=== PATIENT | male | born 1965 | race Caucasian/White ===

== ENCOUNTER 2019-01-17 23:25 | Emergency (ER) | payer OTHER ==
[2019-01-17 23:37] VITALS: RESP 18
[2019-01-18] MEDS ORDERED: ONDANSETRON 4 MG/2 ML VIAL IVP STA (00:24)
[2019-01-18] MEDS ORDERED: SODIUM CHLORIDE 0.9% 1,000 ML IV STA (00:24)
[2019-01-18] MEDS ORDERED: MORPHINE SULFATE 4 MG/ML SYRINGE IV STA (00:24)
[2019-01-18] MEDS ORDERED: KETOROLAC 30 MG/ML 1 ML VIAL IVP STA (00:24)
--- NOTE | 2019-01-18 00:34 | ED ---
Abdominal Pain HPI - General Chief Complaint: Abdominal Pain Stated Complaint: Groin Pain Time Seen by Provider: 01/18/19 00:08 Source: patient Mode of arrival: ambulatory Limitations: no limitations - History of Present Illness Initial Comments: 53-year-old male patient with past medical history significant for chronic low back pain, presents to the emergency department today for evaluation of right lower quadrant abdominal pain that radiates into the back. Patient states this started this afternoon and has been steadily worsening. Patient states the pain started suddenly. Patient states the pain is similar to when he has had kidney stones in the past. Patient denies any fever, chills, hematuria, dysuria, urinary frequency, urinary urgency. States he has been nauseated but has not vomited. Denies any constipation or diarrhea. Patient denies any recent rash, shortness breath, chest pain, numbness, tingling, dizziness, weakness, headache, visual changes, or any other complaints. - Related Data Previous Rx's Medication Instructions Recorded Hydrochlorothiazide 12.5 mg PO DAILY #30 capsule 11/29/15 Clindamycin HCl 300 mg PO QID #40 cap 01/06/16 Ibuprofen [Motrin] 800 mg PO Q8HR PRN #30 tab 01/06/16 traMADol HCl [Ultram] 50 mg PO Q6H PRN #20 tab 01/06/16 Ciprofloxacin HCl [Cipro] 500 mg PO BID 7 Days #14 tab 01/18/19 Ketorolac [Toradol] 10 mg PO Q6HR #12 tab 01/18/19 Ondansetron [Zofran ODT] 4 mg PO Q8HR PRN #10 tab 01/18/19 Tamsulosin HCl [Flomax] 0.4 mg PO DAILY #7 cap 01/18/19 Allergies Allergy/AdvReac Type Severity Reaction Status Date / Time No Known Allergies Allergy Verified 01/17/19 23:37 Review of Systems ROS Statement: Those systems with pertinent positive or pertinent negative responses have been documented in the HPI. ROS Other: All systems not noted in ROS Statement are negative. Past Medical History Past Medical History: Hypertension Additional Past Medical History / Comment(s): herniated disc, kidney stones History of Any Multi-Drug Resistant Organisms: None Reported Past Surgical History: Hernia Repair Past Psychological History: No Psychological Hx Reported Smoking Status: Current every day smoker Past Alcohol Use History: None Reported Past Drug Use History: None Reported General Exam Limitations: no limitations General appearance: alert, in no apparent distress, other Eye exam: Present: normal appearance (Physical well-developed, well-nourished adult male patient in mild distress related to pain. Vital signs upon pre sentation are temperature 98.5F, pulse 71, respirations 18, blood pressure 180/89, pulse ox 97% on room air.), PERRL, EOMI. Absent: scleral icterus, conjunctival injection, periorbital swelling ENT exam: Present: normal exam, normal oropharynx, mucous membranes moist Respiratory exam: Present: normal lung sounds bilaterally. Absent: respiratory distress, wheezes, rales, rhonchi, stridor Cardiovascular Exam: Present: regular rate, normal rhythm, normal heart sounds. Absent: systolic murmur, diastolic murmur, rubs, gallop, clicks GI/Abdominal exam: Present: soft, normal bowel sounds. Absent: distended, tenderness, guarding, rebound, rigid Neurological exam: Present: alert, oriented X3, CN II-XII intact Psychiatric exam: Present: normal affect, normal mood Skin exam: Present: warm, dry, intact, normal color. Absent: rash Course Vital Signs 01/17/19 01/18/19 23:34 02:25 Temperature 98.5 F 98 F Pulse Rate 71 66 Respiratory 18 18 Rate Blood Pressure 180/89 145/87 O2 Sat by Pulse 97 98 Oximetry Medical Decision Making - Medical Decision Making 53-year-old male patient presents to emergency department today for evaluation of right flank pain, right lower abdominal pain. Physical examination did reveal soft nontender abdomen. Patient has some right CVA tenderness. Labs reviewed and did reveal elevated white blood cell count at 16.4. Kidney function was normal. Urinalysis showed a brown turbid appearance with greater than 182 red blood cells, 20 white blood cells, rare bacteria, and moderate mucus. Patient symptoms and urine findings are consistent with kidney stone. We will start Cipro for possibility of infection. He will be discharged home with anti-inflammatories, nausea medicine, and Flomax. Patient does have [place] at home and does have a pain contract. He is instructed to follow-up with the urologist for recheck as soon as possible. Return parameters were discussed in detail. He verbalizes understanding and agrees with this plan. - Lab Data Result diagrams: 01/18/19 00:45 03/26/19 00:45 Lab Results 01/18/19 01/18/19 01/18/19 Range/Units 00:45 00:45 01:03 WBC 16.4 H (3.8-10.6) k/uL RBC 4.64 (4.30-5.90) m/uL Hgb 13.9 (13.0-17.5) gm/dL Hct 43.2 (39.0-53.0) % MCV 93.1 (80.0-100.0) fL MCH 29.9 (25.0-35.0) pg MCHC 32.1 (31.0-37.0) g/dL RDW 14.2 (11.5-15.5) % Plt Count 400 (150-450) k/uL Neutrophils % 69 % Lymphocytes % 22 % Monocytes % 6 % Eosinophils % 2 % Basophils % 0 % Neutrophils # 11.2 H (1.3-7.7) k/uL Lymphocytes # 3.6 (1.0-4.8) k/uL Monocytes # 1.0 (0-1.0) k/uL Eosinophils # 0.3 (0-0.7) k/uL Basophils # 0.1 (0-0.2) k/uL Sodium 140 (137-145) mmol/L Potassium 4.3 (3.5-5.1) mmol/L Chloride 111 H (98-107) mmol/L Carbon Dioxide 24 (22-30) mmol/L Anion Gap 5 mmol/L BUN 17 (9-20) mg/dL Creatinine 0.74 (0.66-1.25) mg/dL Est GFR (CKD-EPI)AfAm >90 (>60 ml/min/1.73 sqM) Est GFR (CKD-EPI)NonAf >90 (>60 ml/min/1.73 sqM) Glucose 98 (74-99) mg/dL Calcium 9.3 (8.4-10.2) mg/dL Total Bilirubin 0.4 (0.2-1.3) mg/dL AST 22 (17-59) U/L ALT 17 L (21-72) U/L Alkaline Phosphatase 64 (38-126) U/L Total Protein 6.2 L (6.3-8.2) g/dL Albumin 3.6 (3.5-5.0) g/dL Amylase <30 L (30-110) U/L Lipase 64 (23-300) U/L Urine Color Brown Urine Appearance Turbid (Clear) Urine RBC >182 H (0-5) /hpf Urine WBC 20 H (0-5) /hpf Urine Bacteria Rare H (None) /hpf Urine Mucus Moderate H (None) /hpf - Radiology Data Radiology results: report reviewed, image reviewed One view of the abdomen is obtained. Report was reviewed in its entirety. Impression by Dr. Peterson shows calcific opacities noted in the mid upper abdomen bilaterally. Potential renal calculus or other etiologies. Nonspecific bowel gas pattern. Disposition Clinical Impression: Kidney stone on right side Disposition: HOME SELF-CARE Condition: Good Instructions (If sedation given, give patient instructions): Kidney Stones (ED), How to Strain Your Urine (ED) Additional Instructions: Increase fluids. Take medications as directed. Follow-up with urologist for recheck as soon as possible. Return to the emergency department immediately for any new, worsening, or concerning symptoms. Prescriptions: Ciprofloxacin HCl [Cipro] 500 mg PO BID 7 Days #14 tab Tamsulosin HCl [Flomax] 0.4 mg PO DAILY #7 cap Ketorolac [Toradol] 10 mg PO Q6HR #12 tab Ondansetron [Zofran ODT] 4 mg PO Q8HR PRN #10 tab PRN Reason: Nausea Is patient prescribed a controlled substance at d/c from ED?: No Referrals: Sarika Holliday MD [Primary Care Provider] - 1-2 days Mo Monaco MD [STAFF PHYSICIAN] - 1-2 days Time of Disposition: 02:16
--- NOTE | 2019-01-18 00:44 | XR ---
EXAM: XR Abdomen, 1 View CLINICAL HISTORY: ITS.REASON XR Reason: abdominal pain TECHNIQUE: Frontal supine view of the abdomen/pelvis. COMPARISON: No relevant prior studies available. FINDINGS: Gastrointestinal tract: Nonspecific bowel gas pattern. Organs: Calcific opacities noted in the mid-upper abdomen bilaterally, potentially renal calculi or other etiologies. Bones/joints: No acute fracture. IMPRESSION: 1. Calcific opacities noted in the mid-upper abdomen bilaterally, potentially renal calculi or other etiologies. 2. Nonspecific bowel gas pattern.
[2019-01-18 01:09] LABS: Basophils # (A) 0.1 k/uL (0-0.2); Basophils % (A) 0 %; Eosinophils # (A) 0.3 k/uL (0-0.7); Eosinophils % (A) 2 %; HCT 43.2 % (39.0-53.0); HGB 13.9 gm/dL (13.0-17.5); Lymphocytes # (A) 3.6 k/uL (1.0-4.8); Lymphocytes % (A) 22 %; MCH 29.9 pg (25.0-35.0); MCHC 32.1 g/dL (31.0-37.0); MCV 93.1 fL (80.0-100.0); Mean Platelet Volume 7.2; Monocytes % (A) 6 %; Neutrophils # (A) 11.2 k/uL (1.3-7.7); Neutrophils % (A) 69 %; Platelet Count 400 k/uL (150-450); RBC 4.64 m/uL (4.30-5.90); RDW 14.2 % (11.5-15.5); WBC 16.4 k/uL (3.8-10.6)
[2019-01-18 01:23] LABS: ALT 17 U/L (21-72); AST 22 U/L (17-59); Albumin 3.6 g/dL (3.5-5.0); Alkaline Phosphatase 64 U/L (38-126); Amylase <30 U/L (30-110); Anion Gap 5 mmol/L; Blood Urea Nitrogen 17 mg/dL (9-20); Calcium 9.3 mg/dL (8.4-10.2); Carbon Dioxide 24 mmol/L (22-30); Chloride 111 mmol/L (98-107); Glucose 98 mg/dL (74-99); Lipase 64 U/L (23-300); Potassium 4.3 mmol/L (3.5-5.1); Sodium 140 mmol/L (137-145); Total Bilirubin 0.4 mg/dL (0.2-1.3); Total Protein 6.2 g/dL (6.3-8.2)
[2019-01-18 01:33] LABS: Bacteria,Urine Rare /hpf; Mucus,Urine Moderate /hpf; WBC,Urine 20 /hpf (0-5)
[2019-01-18] MEDS ORDERED: TAMSULOSIN 0.4 MG CAP.ER.24H PO STA (01:42)
[2019-01-18 01:46] LABS: Appearance,Urine Turbid (Clear); Color,Urine Brown
[2019-01-18 01:47] LABS: RBC,Urine >182 /hpf (0-5)
[2019-01-18] MEDS ORDERED: IBUPROFEN 600 MG STARTER PACK 4 TAB BTL PO STA (02:13)
[2019-01-18] MEDS ORDERED: ONDANSETRON 4 MG ODT STARTER PACK 2 TAB BTL PO STA (02:13)
[2019-01-18] MEDS ORDERED: CIPROFLOXACIN HCL 250 MG TAB PO STA (02:13)
[2019-01-18 02:26] VITALS: BP 145/87; PULSE 66; TEMP 98
== END 2019-01-18 02:32 | disposition home or self-care (01) ==
LOC: EC 23:25
DX: N20.0 Calculus of kidney (principal); D72.829 Elevated white blood cell count, unspecified; F17.200 Nicotine dependence, unspecified, uncomplicated; Z87.442 Personal history of urinary calculi
CPT/HCPCS: 36415; 80053; 82150; 83690; 85025; 81001; 87086; 74018; 99284; 96374; 96375 ×2; 96361 ×2; J2270; J2405; J1885; S0119

== ENCOUNTER 2019-06-10 15:05 | Emergency (ER) | payer OTHER ==
[2019-06-10 15:10] VITALS: BP 165/88; PULSE 62; RESP 18; TEMP 98.3
--- NOTE | 2019-06-10 16:08 | ED ---
General Adult HPI - General Source: patient, RN notes reviewed Mode of arrival: ambulatory Limitations: no limitations <Chris Nickerson - Last Filed: 06/10/19 16:54> <Boom Macias - Last Filed: 06/10/19 16:58> - General Chief complaint: Eye Problems Stated complaint: nail gun vs Rt eye Time Seen by Provider: 06/10/19 15:15 - History of Present Illness Initial comments: Patient's a 54-year-old male presented to the emergency room today with a chief complaint of injury to the right eye. Patient does admit that he was working today putting up some. Poor with a [employer] when the nail bounced back and hit him in the right eye. Patient states that it went into the corner of the eye. He states he was able to pull the nail on believes that when in half centimeter. Patient states that his vision is unchanged. He states he is seen just fine. He states he initially was not going to come here to the emergency room but people that he was working with us advised that he should because of possible infection. Patient states his tetanus is up-to-date. He denies any other complaints or any other symptoms currently. (Chris Nickerson) - Related Data Previous Rx's Medication Instructions Recorded Hydrochlorothiazide 12.5 mg PO DAILY #30 capsule 11/29/15 Clindamycin HCl 300 mg PO QID #40 cap 01/06/16 Ibuprofen [Motrin] 800 mg PO Q8HR PRN #30 tab 01/06/16 traMADol HCl [Ultram] 50 mg PO Q6H PRN #20 tab 01/06/16 Ciprofloxacin HCl [Cipro] 500 mg PO BID 7 Days #14 tab 01/18/19 Ketorolac [Toradol] 10 mg PO Q6HR #12 tab 01/18/19 Ondansetron [Zofran ODT] 4 mg PO Q8HR PRN #10 tab 01/18/19 Tamsulosin HCl [Flomax] 0.4 mg PO DAILY #7 cap 01/18/19 Allergies Allergy/AdvReac Type Severity Reaction Status Date / Time No Known Allergies Allergy Verified 06/10/19 15:09 Review of Systems ROS Other: All systems not noted in ROS Statement are negative. <Chris Nickerson - Last Filed: 06/10/19 16:54> ROS Other: All systems not noted in ROS Statement are negative. <Boom Macias - Last Filed: 06/10/19 16:58> ROS Statement: Those systems with pertinent positive or pertinent negative responses have been documented in the HPI. Past Medical History Past Medical History: Hypertension Additional Past Medical History / Comment(s): herniated disc, kidney stones History of Any Multi-Drug Resistant Organisms: None Reported Past Surgical History: Hernia Repair Past Psychological History: No Psychological Hx Reported Smoking Status: Current every day smoker Past Alcohol Use History: None Reported Past Drug Use History: None Reported <Chris Nickerson - Last Filed: 06/10/19 16:54> General Exam Limitations: no limitations <Chris Nickerson - Last Filed: 06/10/19 16:54> - General Exam Comments Initial Comments: General: The patient is awake and alert, in no distress, and does not appear acutely ill. Eye: Pupils are equal, round and reactive to light, extra-ocular movements are intact. No nystagmus. Subconjunctival hemorrhages seen to the right lateral aspect of the right eye. No signs of icterus. Musculoskeletal: Normal ROM, no tenderness. Strength 5/5. Sensation intact. Neurological: A&O x 3. CN II-XII intact, There are no obvious motor or sensory deficits. Coordination appears grossly intact. Speech is normal. Skin: Skin is warm and dry and no rashes or lesions are noted. Psychiatric: Cooperative, appropriate mood & affect, normal judgment. (Chris Nickerson) Course Vital Signs 06/10/19 15:07 Temperature 98.3 F Pulse Rate 62 Respiratory 18 Rate Blood Pressure 165/88 O2 Sat by Pulse 97 Oximetry Procedures <Chris Nickerson - Last Filed: 06/10/19 16:54> - Procedures Initial comment: Patient's right eye was stained with forcing and checked with Wood's lamp. Does show a comfortable abrasion to the lateral aspect. There is subconjunctival hemorrhage. No hyphema. There is no evidence for a ruptured equal. (Chris Nickerson) Medical Decision Making <Chris Nickerson - Last Filed: 06/10/19 16:54> <Boom Macias - Last Filed: 06/10/19 16:58> - Medical Decision Making 1548: Patient's right eye was checked with Wood's lamp and stained with forcing does reveal a conjunctival abrasion. There is subconjunctival hemorrhage in this area. The case was discussed and seen by tender physician Dr. Macias who did discuss the case with tubing tester marionette performer Dr. De La Rosa who recommends a CT of the orbits to rule out any foreign body. 1655: Patient's CT of the orbits is negative. The case was discussed again with hemolysis Dr. Pastor states that the patient may proceed to his office and he will see him at 5:30 today. Patient will be discharged home and advised to head directly to his office at this time. (Chris Nickerson) I, Sterling Macias, personally saw and examined the patient. I have reviewed and agree with the PA findings, including all diagnostic interpretations and treatment plans as written unless otherwise stated. I was present for the corado portions of any procedures performed and the inclusive time noted for any critical care statement. (Boom Macias) Disposition Is patient prescribed a controlled substance at d/c from ED?: No Time of Disposition: 16:56 <Chris Nickerson - Last Filed: 06/10/19 16:54> <Boom Macias - Last Filed: 06/10/19 16:58> Clinical Impression: Conjunctival abrasion Disposition: HOME SELF-CARE Condition: Stable Instructions (If sedation given, give patient instructions): Corneal Abrasion (ED) Additional Instructions: Please proceed directly to Dr. Pastor's office as discussed. Referrals: Sarika Holliday MD [Primary Care Provider] - 1-2 days
--- NOTE | 2019-06-10 16:39 | CT ---
EXAMINATION TYPE: CT orbits wo con DATE OF EXAM: 06/10/2019 COMPARISON: None HISTORY: Nail from nail gun flipped back and hit side of right eye. CT DLP: 239.1 mGycm Automated exposure control for dose reduction was used. FINDINGS: Bilateral globes are intact. Optic nerves are symmetric. Intraconal fat is preserved. No evidence of radiopaque foreign body. Small mucosal polyp or retention cyst is seen in the sphenoid sinus. A few o pacified ethmoid air cells are visualized. Dental sinuses are hypoplastic. Maxillary sinuses are well aerated. Mastoid air cells are clear. Punctate radiopaque calcifications seen along the superior and medial orbital wall appear symmetric a nd best seen on image 26. Mild soft tissue swelling seen superior to the right orbit overlying the frontal bone. Left external auditory canal cerumen. IMPRESSION: ORBITS AND GLOBES APPEAR INTACT. SOFT TISSUE SWELLING OVER THE RIGHT MEDIAL SUPRAORBITAL AND NASAL [place] NE.
== END 2019-06-10 17:08 | disposition home or self-care (01) ==
LOC: EC 15:05
DX: S05.01XA Injury of conjunctiva and corneal abrasion without foreign body, right eye, initial encounter (principal); F17.200 Nicotine dependence, unspecified, uncomplicated; W29.4XXA Contact with nail gun, initial encounter; Y93.89 Activity, other specified
CPT/HCPCS: 70480; 99283

== ENCOUNTER 2021-02-16 13:05 | Emergency (ER) | payer OTHER ==
[2021-02-16 13:10] VITALS: BP 186/89; PULSE 80; RESP 20; TEMP 97.8
--- NOTE | 2021-02-16 13:43 | ED ---
Upper Extremity HPI - General Chief Complaint: Extremity Injury, Upper Stated Complaint: Hand swollen Time Seen by Provider: 02/16/21 13:13 Source: patient Mode of arrival: ambulatory Limitations: no limitations - History of Present Illness Initial Comments: 55-year-old male presents to the emergency department with a chief complaint of right hand swelling. Patient reports this started since yesterday. 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 States yesterday he also noticed a small piece of which In his right fourth digit. States he took it out but later began to develop some redness that is moving proximally to the hand. He denies any significant swelling to the region. States that there is slight swelling where the foreign body was removed. States his tetanus is up-to-date. Patient is requesting antibiotic treatment. He denies any fevers or chills. Denies any limited range of motion to finger. - Related Data Previous Rx's Medication Instructions Recorded Hydrochlorothiazide 12.5 mg PO DAILY #30 capsule 11/29/15 [hydroCHLOROthiazide] Clindamycin HCl 300 mg PO QID #40 cap 01/06/16 Ibuprofen [Motrin] 800 mg PO Q8HR PRN #30 tab 01/06/16 traMADol HCl [Ultram] 50 mg PO Q6H PRN #20 tab 01/06/16 Ciprofloxacin HCl [Cipro] 500 mg PO BID 7 Days #14 tab 01/18/19 Ketorolac [Toradol] 10 mg PO Q6HR #12 tab 01/18/19 Ondansetron [Zofran ODT] 4 mg PO Q8HR PRN #10 tab 01/18/19 Tamsulosin HCl [Flomax] 0.4 mg PO DAILY #7 cap 01/18/19 Cephalexin [Keflex] 500 mg PO Q6HR #40 cap 02/16/21 Allergies Allergy/AdvReac Type Severity Reaction Status Date / Time No Known Allergies Allergy Verified 02/16/21 13:10 Review of Systems ROS Statement: Those systems with pertinent positive or pertinent negative responses have been documented in the HPI. ROS Other: All systems not noted in ROS Statement are negative. Past Medical History Past Medical History: Hypertension Additional Past Medical History / Comment(s): herniated disc, kidney stones History of Any Multi-Drug Resistant Organisms: None Reported Past Surgical History: Hernia Repair Past Psychological History: No Psychological Hx Reported Smoking Status: Current every day smoker Past Alcohol Use History: None Reported Past Drug Use History: None Reported General Exam Limitations: no limitations General appearance: alert, in no apparent distress Head exam: Present: atraumatic, normocephalic, normal inspection Eye exam: Present: normal appearance, PERRL, EOMI Pupils: Present: normal accommodation ENT exam: Present: normal exam, normal oropharynx, mucous membranes moist, TM's normal bilaterally, normal external ear exam Neck exam: Present: normal inspection, full ROM. Absent: tenderness Respiratory exam: Present: normal lung sounds bilaterally. Absent: respiratory distress, wheezes, rales, rhonchi, stridor Cardiovascular Exam: Present: regular rate, normal rhythm, normal heart sounds Extremities exam: Present: full ROM, tenderness (Mild tenderness at the erythematous site. Not warm to the touch), normal capillary refill, other (Palpable DP and PT bilaterally.). Absent: normal inspection (Very mild swelling noted on the dorsal aspect of the distal right fourth digit. No signs of an abscess. There is some erythema that is going proximally to the hand. No signs of a felon.), pedal edema, joint swelling, calf tenderness Back exam: Present: normal inspection, full ROM. Absent: tenderness Neurological exam: Present: alert, oriented X3 Psychiatric exam: Present: normal affect, normal mood Skin exam: Present: warm, dry, intact, normal color Course Vital Signs 02/16/21 13:06 Temperature 97.8 F Pulse Rate 80 Respiratory 20 Rate Blood Pressure 186/89 O2 Sat by Pulse 96 Oximetry Medical Decision Making - Medical Decision Making 55-year-old male presents emergency department with a chief complaint of right hand swelling. Physical examination, this appears to be cellulitis that is moving slowly proximally to the arm. No felon or abscess. I did offer x-ray imaging and laboratory work, patient declined. Patient is only requesting an appendix. He will be started on Keflex. His tetanus is up-to-date. Return parameters were discussed patient was worsening agreeable. Case discussed with Dr. Elam. Disposition Clinical Impression: Cellulitis of hand Disposition: HOME SELF-CARE Condition: Stable Instructions (If sedation given, give patient instructions): Cellulitis (DC) Additional Instructions: Please return to the Emergency Department if symptoms worsen or any other concerns. Prescriptions: Cephalexin [Keflex] 500 mg PO Q6HR #40 cap Is patient prescribed a controlled substance at d/c from ED?: No Referrals: Sarika Holliday MD [Primary Care Provider] - 1-2 days Time of Disposition: 13:43
== END 2021-02-16 13:57 | disposition home or self-care (01) ==
LOC: EC 13:05
DX: L03.119 Cellulitis of unspecified part of limb (principal); I10 Essential (primary) hypertension; F17.200 Nicotine dependence, unspecified, uncomplicated
CPT/HCPCS: 99283